=== PATIENT | male | born 1970 | race Caucasian/White ===

== ENCOUNTER 2020-10-17 17:11 | Inpatient (IN) | payer SELFPAY ==
[~2020-10-17] VITALS: Ht 172.7 cm; Wt 83.7 kg
[2020-10-17 17:21] VITALS: BP 135/90
[2020-10-17 17:32] LABS: BASO # 0.1 10*3/uL (0.0-0.1); BASO % 1.3 % (0.0-1.0); EOS # 0.2 10*3/uL (0.0-0.4); EOS % 2.5 % (1.0-4.0); HEMATOCRIT 44.6 % (42.0-52.0); LYMPH # 2.2 10*3/uL (1.3-4.4); LYMPH % 25.4 % (27.0-41.0); MEAN CELL VOLUME 95.9 fl (80.0-94.0); MEAN CORPUSCULAR HGB 32.9 pg (27.0-31.0); MEAN CORPUSCULAR HGB CONC 34.3 g/dl (33.0-37.0); MEAN PLATELET VOLUME 8.9 fl (9.6-12.3); MONO # 0.9 10*3/uL (0.1-1.0); MONO % 10.2 % (3.0-9.0); NEUT # 5.3 10*3/uL (2.3-7.9); NEUT % 60.1 % (47.0-73.0); PLATELET COUNT AUTOMATED 329 10*3/uL (130-400); RED BLOOD COUNT 4.65 10*6/uL (4.50-5.90); RED CELL DISTRI WIDTH 12.5 % (0-14.5); WHITE BLOOD COUNT 8.7 10*3/uL (4.8-10.8)
[2020-10-17 17:47] LABS: ALBUMIN 3.6 gm/dl (3.1-4.5); ALKALINE PHOSPHATASE 84 U/L (45-117); BUN 10 mg/dl (7-24); CHLORIDE 105 mmol/L (98-107); CREATININE 1.04 mg/dL (0.70-1.30); POTASSIUM 3.2 mmol/L (3.5-5.1); SGOT/AST 16 IU/L (3-35); SGPT/ALT 31 U/L (12-78); SODIUM 132 mmol/L (136-145); TOTAL PROTEIN 7.1 gm/dL (6.4-8.2)
[2020-10-17 17:50] LABS: TROPONIN I < 0.015 ng/ml (<0.045)
[2020-10-17 18:13] VITALS: BP 118/83
[2020-10-17 19:08] VITALS: BP 118/83
[2020-10-17] MEDS ORDERED: AMLODIPINE BESY10 MG PO (19:17)
[2020-10-17] MEDS ORDERED: METOPROLOL SUCC25 M2 PO (19:18)
[2020-10-17] MEDS ORDERED: LISINOPRIL20 MG PO (19:18)
[2020-10-17] MEDS ORDERED: OMEPRAZOLE MAGN20 MG PO (19:19)
[2020-10-17] MEDS ORDERED: ROSUVASTATIN CA20 MG PO (19:21)
[2020-10-17] MEDS ORDERED: AIRDUO DIGIHAL1 EACH INH (19:21)
[2020-10-17] MEDS ORDERED: VYTORIN 10-101 EACH PO (19:24)
[2020-10-17] MEDS ORDERED: ASPIRIN ADULT L81 M1 PO (19:26)
[2020-10-17 20:00] VITALS: BP 131/81
[2020-10-17 22:52] VITALS: BP 102/72
[2020-10-17 23:10] VITALS: BP 131/81
== END 2020-10-18 12:09 | disposition home or self-care (01) | DRG 880 ==
LOC: ED 17:11 → EDHOLD 18:09 → 5E 22:46
PROVIDERS: Student in an Organized Health Care Education/Training Program; ADMIT Family Medicine; ATTEND Family Medicine
DX: F41.9 Anxiety disorder, unspecified (principal); E87.1 Hypo-osmolality and hyponatremia; I10 Essential (primary) hypertension; K21.9 Gastro-esophageal reflux disease without esophagitis; I25.10 Atherosclerotic heart disease of native coronary artery without angina pectoris; E87.6 Hypokalemia; R73.9 Hyperglycemia, unspecified; E78.2 Mixed hyperlipidemia; F17.210 Nicotine dependence, cigarettes, uncomplicated; Z71.6 Tobacco abuse counseling; Z79.82 Long term (current) use of aspirin; Z79.899 Other long term (current) drug therapy

== ENCOUNTER 2024-10-07 16:52 | Inpatient (IN) | payer OTHER ==
[~2024-10-07] VITALS: Ht 170.1 cm; Wt 90.7 kg
[~2024-10-07 16:52] MED LIST: AIRDUO DIGIHAL1 EACH INH; AMLODIPINE BESY10 MG PO; ASPIRIN ADULT L81 M1 PO; LISINOPRIL20 MG PO; METOPROLOL SUCC25 M2 PO; OMEPRAZOLE MAGN20 MG PO; ROSUVASTATIN CA20 MG PO; VYTORIN 10-101 EACH PO
[2024-10-07 17:27] VITALS: BP 107/69
[2024-10-07 17:42] LABS: BASO # 0.1 10*3/uL (0.0-0.1); BASO % 0.5 % (0.0-1.0); EOS # 0.1 10*3/uL (0.0-0.4); EOS % 1.0 % (1.0-4.0); MEAN CELL VOLUME 89.1 fl (80.0-94.0); MEAN CORPUSCULAR HGB 32.1 pg (27.0-31.0); MEAN PLATELET VOLUME 8.7 fl (9.6-12.3); MONO # 0.7 10*3/uL (0.1-1.0); MONO % 6.1 % (3.0-9.0); NEUT # 7.8 10*3/uL (2.3-7.9); NEUT % 66.0 % (47.0-73.0); NUCLEATED RED BLOOD CELL 0.0 % (0.0-0.0); NUCLEATED RED BLOOD CELL 0.0 10*3/uL (0.0-0.0); PLATELET COUNT AUTOMATED 290 10*3/uL (130-400); RED CELL DISTRI WIDTH 14.1 % (0-14.5)
[2024-10-07 18:13] LABS: BUN 7 mg/dl (9-23); ETHYL ALCOHOL 292.2 mg/dl (<3); SGPT/ALT 33 U/L (5-49)
[2024-10-07] MEDS ORDERED: SODIUM CHLORIDE 0.9% 500 ML IV ONE (18:52)
[2024-10-07] MEDS ORDERED: POTASSIUM CHLORIDE IN WATER 100 ML IV SCH (19:00)
[2024-10-07] MEDS ORDERED: hydrOXYzine 50 MG CAP PO PRN (20:15)
[2024-10-07] MEDS ORDERED: FOLIC ACID 1 MG TAB PO ONE (20:15)
[2024-10-07] MEDS ORDERED: Dicyclomine Hydrochloride 20 MG TAB PO PRN (20:15)
[2024-10-07] MEDS ORDERED: METHOCARBAMOL 750 MG TAB PO PRN (20:15)
[2024-10-07] MEDS ORDERED: MAGNESIUM SULFATE 100 ML IV ONE (20:15)
[2024-10-07] MEDS ORDERED: BISACODYL 10 MG SUPP R PRN (20:20)
[2024-10-08] MEDS ORDERED: LORazepam 1 MG TAB PO SCH
[2024-10-08] MEDS ORDERED: MULTIVITAMIN 1 TAB TAB PO SCH (10:00)
[2024-10-08] MEDS ORDERED: LOSARTAN POTASS50 M1 PO (16:04)
[2024-10-08] MEDS ORDERED: MIRTAZAPINE15 M2 PO (16:05)
[2024-10-08] MEDS ORDERED: PANTOPRAZOLE SO20 MG PO (16:06)
[2024-10-09] MEDS ORDERED: LORazepam 1 MG TAB PO PRN
[2024-10-09] MEDS ORDERED: LORazepam 1 MG TAB PO SCH (02:00)
== END 2024-10-07 21:22 | disposition left against medical advice (07) | DRG 894 ==
LOC: ED 16:52 → EDHOLD 18:25
PROVIDERS: Nurse Practitioner Family; ADMIT Student in an Organized Health Care Education/Training Program; ATTEND Student in an Organized Health Care Education/Training Program
DX: F10.220 Alcohol dependence with intoxication, uncomplicated (principal); E87.6 Hypokalemia; I10 Essential (primary) hypertension; E78.5 Hyperlipidemia, unspecified; I25.10 Atherosclerotic heart disease of native coronary artery without angina pectoris; K21.9 Gastro-esophageal reflux disease without esophagitis; Z53.29 Procedure and treatment not carried out because of patient's decision for other reasons; R73.9 Hyperglycemia, unspecified; R00.0 Tachycardia, unspecified; D72.829 Elevated white blood cell count, unspecified; F17.210 Nicotine dependence, cigarettes, uncomplicated; Z79.899 Other long term (current) drug therapy; Z79.01 Long term (current) use of anticoagulants; Z79.2 Long term (current) use of antibiotics; Z81.8 Family history of other mental and behavioral disorders; Z95.5 Presence of coronary angioplasty implant and graft; Y90.9 Presence of alcohol in blood, level not specified

== ENCOUNTER 2024-10-08 15:38 | Inpatient (IN) | payer OTHER ==
[~2024-10-08] VITALS: Ht 172.7 cm; Wt 95.3 kg
[2024-10-08 16:02] VITALS: BP 201/102
[2024-10-08] MEDS ORDERED: LOSARTAN POTASS50 M1 PO (16:04)
[2024-10-08] MEDS ORDERED: MIRTAZAPINE15 M2 PO (16:05)
[2024-10-08] MEDS ORDERED: PANTOPRAZOLE SO20 MG PO (16:06)
[2024-10-08] MEDS ORDERED: SODIUM CHLORIDE 0.9% 1,000 ML IV ONE (16:25)
[2024-10-08 17:00] LABS: URINE AMPHETAMINES Negative (1000ng/ml); URINE BARBITURATES Negative (200ng/ml); URINE BENZODIAZEPINES Negative (200ng/ml); URINE CANNABINOIDS (THC) Negative (50ng/ml); URINE COCAINE Negative (300ng/ml); URINE METHADONE Negative (300ng/ml); URINE OPIATES Negative (300ng/ml); URINE PHENCYCLIDINE Negative (25ng/ml)
[2024-10-08 17:06] LABS: BASO # 0.1 10*3/uL (0.0-0.1); BASO % 0.7 % (0.0-1.0); EOS # 0.2 10*3/uL (0.0-0.4); EOS % 1.9 % (1.0-4.0); MEAN CELL VOLUME 91.4 fl (80.0-94.0); MEAN CORPUSCULAR HGB 31.4 pg (27.0-31.0); MEAN PLATELET VOLUME 8.3 fl (9.6-12.3); MONO # 0.7 10*3/uL (0.1-1.0); MONO % 7.5 % (3.0-9.0); NEUT # 4.7 10*3/uL (2.3-7.9); NEUT % 51.4 % (47.0-73.0); NUCLEATED RED BLOOD CELL 0.0 % (0.0-0.0); NUCLEATED RED BLOOD CELL 0.0 10*3/uL (0.0-0.0); PLATELET COUNT AUTOMATED 257 10*3/uL (130-400); RED CELL DISTRI WIDTH 14.3 % (0-14.5)
[2024-10-08 17:43] LABS: BUN 8 mg/dl (9-23); ETHYL ALCOHOL 291.3 mg/dl (<3); SGPT/ALT 37 U/L (5-49)
[2024-10-08] MEDS ORDERED: Potassium Bicarbonate/Potass 25 MEQ TAB PO ONE (18:30)
== END 2024-10-08 19:08 | disposition left against medical advice (07) | DRG 894 ==
LOC: ED 15:38 → EDHOLD 18:35
PROVIDERS: Emergency Medicine; ADMIT Internal Medicine; ATTEND Internal Medicine
DX: F10.10 Alcohol abuse, uncomplicated (principal); F17.210 Nicotine dependence, cigarettes, uncomplicated; E87.6 Hypokalemia; Z53.29 Procedure and treatment not carried out because of patient's decision for other reasons; Z79.899 Other long term (current) drug therapy; Z79.01 Long term (current) use of anticoagulants; Z79.3 Long term (current) use of hormonal contraceptives; Z95.5 Presence of coronary angioplasty implant and graft; Z81.8 Family history of other mental and behavioral disorders; Y90.0 Blood alcohol level of less than 20 mg/100 ml